=== PATIENT | male | born 1960 | race African-American/Black ===

== ENCOUNTER 2023-12-14 20:53 | Inpatient (IN) | payer MEDICARE, MEDICAID ==
[~2023-12-14] VITALS: Ht 182.9 cm; Wt 70.8 kg
[2023-12-14 21:03] VITALS: O2SAT 92
[2023-12-14 21:57] LABS: CLARITY URINE CLOUDY (CLEAR); COLOR URINE YELLOW (YELLOW); GLUCOSE URINE NEGATIVE (NEGATIVE); KETONES URINE NEGATIVE (NEGATIVE); LEUKOCYTE ESTERASE URINE 3+ (NEGATIVE); NITRITE URINE POSITIVE (NEGATIVE); OCCULT BLOOD URINE 1+ (NEGATIVE); PROTEIN URINE 1+ (NEGATIVE); SPECIFIC GRAVITY URINE 1.017 (1.005-1.030)
[2023-12-14 22:13] LABS: HEMATOCRIT. 39.2 % (42.0-52.0); HEMOGLOBIN. 13.9 g/dL (14.0-18.0); MEAN CORPUSCULAR HEMOGLOBIN 31.5 pg (28.0-32.0); MEAN CORPUSCULAR HGB CONC 35.3 g/dL (31.0-37.0); MEAN CORPUSCULAR VOLUME 89.1 fL (80.0-94.0); MEAN PLATELET VOLUME 9.2 fl (7.4-10.4); PLATELET 175 x1000/uL (130-400); RED CELL DISTRIBUTION WIDTH 13.7 % (11.6-14.6); WHITE BLOOD COUNT 19.1 x1000/uL (4.5-11.0)
[2023-12-14 22:14] LABS: DIFFERENTIAL COMMENT 1
[2023-12-14 22:14] LABS: WBC URINE 50-100 /hpf (0-2)
[2023-12-14 22:15] LABS: RBC URINE 15-25 /hpf (0-2)
[2023-12-14 22:16] LABS: BACTERIA URINE 4+; SQUAMOUS EPITHELIAL CELL URINE 1+ /lpf (RARE/1+)
[2023-12-14 22:28] LABS: ALANINE AMINOTRANSFERASE 27 IU/L (10-49); ALBUMIN 4.1 g/dL (3.2-4.8); ASPARTATE AMINOTRANSFERASE 22 IU/L (<34); BILIRUBIN TOTAL 0.6 mg/dL (0.1-1.0); CALCIUM 8.6 mg/dL (8.7-10.4); CARBON DIOXIDE 27 mEq/L (21-32); CHLORIDE 105 mEq/L (98-107); CREATINE KINASE 119 IU/L (46-171); CREATININE 1.3 mg/dL (0.6-1.3); GLUCOSE 100 mg/dL (70-105); LACTATE DEHYDROGENASE 197 IU/L (120-246); POTASSIUM 4.3 mEq/L (3.5-5.1); PROTEIN TOTAL 7.3 g/dL (6.0-8.3); SODIUM 136 mEq/L (136-145); TROPONIN I HIGH SENSITIVITY 9 ng/L (3.0-53); UREA NITROGEN BLOOD 16 mg/dL (9-23)
[2023-12-14 22:29] LABS: PLATELET ESTIMATE NORMAL
[2023-12-14] MEDS: SODIUM CHLORIDE 0.9% 1000ML BAG (SEPSIS BOLUS) IV ONE (22:38)
[2023-12-14] MEDS: PIPERACILLIN/TAZO 3.375G/50ML 50 ML IV SCH (23:24)
[2023-12-15 00:23] LABS: INR 1.8; PROTHROMBIN TIME 19.4 sec (9.6-11.0)
[2023-12-15 01:39] VITALS: BP 126/77; PULSE 110; RESP 19; TEMP 98.2
[2023-12-15 04:00] VITALS: BP 143/88; PULSE 108; RESP 20; TEMP 98.7
[2023-12-15] MEDS ORDERED: MULT-1146 MT (04:44)
[2023-12-15] MEDS ORDERED: THIA50TA12 PO (04:44)
[2023-12-15] MEDS ORDERED: LURA120T MT (04:44)
[2023-12-15] MEDS ORDERED: FERR325T6 MT (04:44)
[2023-12-15] MEDS ORDERED: ATOR10TA69 MT (04:44)
[2023-12-15] MEDS ORDERED: HYDR50TA40 MT (04:44)
[2023-12-15] MEDS ORDERED: ONDA4TAB50 MT (04:44)
[2023-12-15] MEDS ORDERED: QUET100T PO (04:44)
[2023-12-15] MEDS ORDERED: LEVE500T98 MT (04:44)
[2023-12-15] MEDS ORDERED: MELA3TAB40 MT (04:44)
[2023-12-15] MEDS ORDERED: TRAZ-251 MT (04:45)
[2023-12-15 08:00] VITALS: BP 141/93; PULSE 111; RESP 15; TEMP 98.7
[2023-12-15] MEDS ORDERED: IPRATROPIUM/ALBUTEROL 0.5-3(2.5)MG/3ML NEB HHN PRN (09:00)
[2023-12-15] MEDS ORDERED: DIPHENHYDRAMINE 50MG/ML VIAL IV PRN (09:00)
[2023-12-15] MEDS ORDERED: ONDANSETRON HCL 4MG/2ML INJ IV PRN (09:00)
[2023-12-15] MEDS ORDERED: CLONIDINE 0.1MG TABLET PO PRN (09:00)
[2023-12-15] MEDS: ACETAMINOPHEN 325MG TABLET PO PRN (09:40)
[2023-12-15] MEDS: PIPERACILLIN/TAZO 3.375G/50ML IV SCH (11:08)
[2023-12-15 12:00] VITALS: BP 128/88; PULSE 106; RESP 20; TEMP 98.9
[2023-12-15] MEDS: VANCOMYCIN 1.5GM/250ML IV NR (13:13)
[2023-12-15 16:00] VITALS: BP 136/77; PULSE 110; RESP 18; TEMP 98.7
[2023-12-15 20:03] VITALS: BP 138/87; PULSE 117; RESP 21; TEMP 98.6
[2023-12-16] VITALS: BP 142/82; PULSE 117; RESP 22; TEMP 98
[2023-12-16 04:00] VITALS: BP 123/102; PULSE 105; RESP 20; TEMP 97.7
[2023-12-16] MEDS: VANCOMYCIN 1GM/200ML PMX (BAXTER) IV SCH (05:49)
[2023-12-16 07:50] LABS: HEMATOCRIT. 44.6 % (42.0-52.0); HEMOGLOBIN. 15.6 g/dL (14.0-18.0); MEAN CORPUSCULAR HEMOGLOBIN 31.2 pg (28.0-32.0); MEAN CORPUSCULAR HGB CONC 34.9 g/dL (31.0-37.0); MEAN CORPUSCULAR VOLUME 89.2 fL (80.0-94.0); MEAN PLATELET VOLUME 9.2 fl (7.4-10.4); PLATELET 138 x1000/uL (130-400); RED CELL DISTRIBUTION WIDTH 14.5 % (11.6-14.6); WHITE BLOOD COUNT 18.6 x1000/uL (4.5-11.0)
[2023-12-16 07:55] LABS: ALANINE AMINOTRANSFERASE 31 IU/L (10-49); ALBUMIN 3.9 g/dL (3.2-4.8); ASPARTATE AMINOTRANSFERASE 24 IU/L (<34); BILIRUBIN TOTAL 0.6 mg/dL (0.1-1.0); CALCIUM 8.8 mg/dL (8.7-10.4); CARBON DIOXIDE 23 mEq/L (21-32); CHLORIDE 105 mEq/L (98-107); GLUCOSE 96 mg/dL (70-105); POTASSIUM 4.6 mEq/L (3.5-5.1); PROTEIN TOTAL 6.9 g/dL (6.0-8.3); SODIUM 137 mEq/L (136-145); UREA NITROGEN BLOOD 11 mg/dL (9-23)
[2023-12-16 08:21] LABS: DIFFERENTIAL COMMENT 1
[2023-12-16 12:00] VITALS: BP 149/86; PULSE 118; RESP 22; TEMP 98
[2023-12-16 16:00] VITALS: BP 142/89; PULSE 115; RESP 21; TEMP 98.2
[2023-12-16 16:13] LABS: PLATELET ESTIMATE NORMAL
[2023-12-16 20:00] VITALS: BP 142/89; PULSE 116; RESP 18; TEMP 98
[2023-12-16] MEDS: CEFAZOLIN 2GM/100ML 100 ML IV SCH (20:59)
[2023-12-17] VITALS: BP 141/88; PULSE 116; RESP 18; TEMP 98
[2023-12-17 04:00] VITALS: BP 132/88; PULSE 116; RESP 18; TEMP 98
[2023-12-17 07:26] LABS: DIFFERENTIAL COMMENT 1; HEMATOCRIT. 38.9 % (42.0-52.0); HEMOGLOBIN. 13.6 g/dL (14.0-18.0); MEAN CORPUSCULAR HEMOGLOBIN 30.5 pg (28.0-32.0); MEAN CORPUSCULAR HGB CONC 35.1 g/dL (31.0-37.0); MEAN PLATELET VOLUME 9.2 fl (7.4-10.4); PLATELET 142 x1000/uL (130-400); RED BLOOD CELL COUNT 4.47 mill/uL (4.7-6.1); WHITE BLOOD COUNT 10.1 x1000/uL (4.5-11.0)
[2023-12-17 07:30] LABS: CALCIUM 8.4 mg/dL (8.7-10.4); CARBON DIOXIDE 26 mEq/L (21-32); CHLORIDE 105 mEq/L (98-107); GLUCOSE 114 mg/dL (70-105); POTASSIUM 3.8 mEq/L (3.5-5.1); SODIUM 138 mEq/L (136-145); UREA NITROGEN BLOOD 18 mg/dL (9-23)
[2023-12-17 08:00] VITALS: BP 132/88; PULSE 106; RESP 20; TEMP 98.2
[2023-12-17 12:00] VITALS: BP 132/88; PULSE 97; RESP 21; TEMP 98.3
[2023-12-17] MEDS ORDERED: CEPH500C2 MT (12:26)
[2023-12-17] MEDS ORDERED: BACLOFEN 10MG TABLET PO PRN (14:00)
[2023-12-17] MEDS: QUETIAPINE FUMARATE 50MG TABLET PO SCH (14:15)
[2023-12-17] MEDS: LEVETIRACETAM 500MG TABLET PO SCH (14:15)
[2023-12-17] MEDS: ATORVASTATIN CALCIUM 10MG TABLET PO SCH (14:16)
[2023-12-17 16:38] LABS: PLATELET ESTIMATE NORMAL
[2023-12-17] MEDS ORDERED: TRAZODONE HCL 50MG TABLET PO SCH (21:00)
== END 2023-12-17 17:02 | DRG 871 ==
LOC: ER 20:53 → 3WST 23:34 → EDBEDREQTM 23:38 → EDBEDREQ 23:38
PROVIDERS: ADMIT Internal Medicine; ATTEND Internal Medicine
DX: A41.51 Sepsis due to Escherichia coli [E. coli] (principal); G93.41 Metabolic encephalopathy; N39.0 Urinary tract infection, site not specified; Z20.822 Contact with and (suspected) exposure to COVID-19; F20.9 Schizophrenia, unspecified; E11.9 Type 2 diabetes mellitus without complications; R65.20 Severe sepsis without septic shock; I10 Essential (primary) hypertension
CPT/HCPCS: 36415; 71045; 80048; 80053; 80202; 81003; 82550; 82962; 83605; 83615; 83880; 84145; 84484; 85025; 87077; 87186; 87426; 87804; 93005; 93970; 99285; J0690; J2543; J3370; J7030

== ENCOUNTER 2025-01-28 17:01 | Emergency (ER) | payer OTHER, MEDICAID ==
[~2025-01-28] VITALS: Ht 177.8 cm; Wt 91.0 kg
[~2025-01-28 17:01] MED LIST: ATOR10TA69 MT; CEPH500C2 MT; FERR325T6 MT; HYDR50TA40 MT; LEVE-20 MT; LURA120T MT; MELA3TAB40 MT; MULT-1146 MT; ONDA4TAB50 MT; QUET100T PO; THIA50TA12 PO; TRAZ-251 MT
[2025-01-28 17:02] VITALS: O2SAT 98
[2025-01-28] MEDS: LEVETIRACETAM 1000MG PREMIX 100 ML IV ONE (17:39)
[2025-01-28 18:24] LABS: CLARITY URINE CLEAR (CLEAR); GLUCOSE URINE NEGATIVE (NEGATIVE); KETONES URINE NEGATIVE (NEGATIVE); LEUKOCYTE ESTERASE URINE NEGATIVE (NEGATIVE); NITRITE URINE NEGATIVE (NEGATIVE); OCCULT BLOOD URINE TRACE (NEGATIVE); PROTEIN URINE 1+ (NEGATIVE); SPECIFIC GRAVITY URINE 1.011 (1.005-1.030); UROBILINOGEN URINE 0.2 E.U./dL (0.2-1.0)
[2025-01-28 18:30] LABS: BASOPHILS % 0.4 % (0.0-2.0); EOSINOPHILS % 0.3 % (0.0-5.0); HEMATOCRIT. 42.1 % (42.0-52.0); HEMOGLOBIN. 14.5 g/dL (14.0-18.0); MEAN CORPUSCULAR HEMOGLOBIN 30.3 pg (28.0-32.0); MEAN CORPUSCULAR HGB CONC 34.4 g/dL (31.0-37.0); MEAN PLATELET VOLUME 9.4 fl (7.4-10.4); MONOCYTES % 9.9 % (2.0-8.0); NEUTROPHILS % 77.4 % (40.0-76.0); PLATELET 208 x1000/uL (130-400); RED BLOOD CELL COUNT 4.79 mill/uL (4.7-6.1); WHITE BLOOD COUNT 14.5 x1000/uL (4.5-11.0)
[2025-01-28 18:33] LABS: *AMPHETAMINES SCREEN URINE NEGATIVE (NEGATIVE); *BARBITURATES SCREEN URINE NEGATIVE (NEGATIVE); *BENZODIAZEPINES SCREEN URINE NEGATIVE (NEGATIVE); *COCAINE SCREEN URINE NEGATIVE (NEGATIVE)
[2025-01-28 18:34] LABS: CANNABINOID URINE SCREEN NEGATIVE (NEGATIVE); ECSTASY MDMA SCREEN URINE NEGATIVE (NEGATIVE); METHADONE URINE SCREEN NEGATIVE (NEGATIVE); OPIATES URINE SCREEN NEGATIVE (NEGATIVE); PHENCYCLIDINE URINE SCREEN NEGATIVE (NEGATIVE)
[2025-01-28 18:38] LABS: CHLORIDE 105 mEq/L (98-107); POTASSIUM 3.6 mEq/L (3.5-5.1); SODIUM 141 mEq/L (136-145)
[2025-01-28 18:39] LABS: CALCIUM 9.8 mg/dL (8.7-10.4); CARBON DIOXIDE 26 mEq/L (21-32)
[2025-01-28 18:41] LABS: COLOR URINE STRAW (YELLOW)
[2025-01-28 18:42] LABS: RBC URINE NONE SEEN /hpf (0-2); SQUAMOUS EPITHELIAL CELL URINE FEW /lpf (RARE/1+); WBC URINE 0-2 /hpf (0-2)
[2025-01-28 18:43] LABS: BACTERIA URINE NONE SEEN; COARSE GRANULAR CASTS URINE 0-5 /lpf; MUCUS URINE TRACE /lpf (NONE/TRACE)
[2025-01-28 18:44] LABS: CREATININE 1.1 mg/dL (0.6-1.3); GLUCOSE 116 mg/dL (70-105); UREA NITROGEN BLOOD 17 mg/dL (9-23)
[2025-01-28 18:45] LABS: ETHANOL BLOOD < 10 mg/dL (<10); TROPONIN I HIGH SENSITIVITY 20 ng/L (3.0-53)
[2025-01-28 21:26] VITALS: BP 126/76; PULSE 98; RESP 15; TEMP 36.9; O2SAT 96
[2025-01-28 21:45] LABS: TROPONIN I HIGH SENSITIVITY 53 ng/L (3.0-53)
== END 2025-01-28 21:25 ==
LOC: ER 17:01 → EDBEDREQ 20:13 → EDBEDREQTM 20:13 → ER 21:25
DX: G40.909 Epilepsy, unspecified, not intractable, without status epilepticus (principal); E11.9 Type 2 diabetes mellitus without complications; I10 Essential (primary) hypertension; F20.9 Schizophrenia, unspecified; E78.5 Hyperlipidemia, unspecified; Z79.899 Other long term (current) drug therapy
CPT/HCPCS: 80305; 80048; 81003; 80320; 85025; 84484; 36415; 71045; 70450; 93005; 96365; 99285; J1953; G0480

== ENCOUNTER 2025-08-12 21:28 | Inpatient (IN) | payer MEDICARE, MEDICAID ==
[~2025-08-12] VITALS: Ht 172.7 cm; Wt 81.6 kg
[2025-08-12 21:36] VITALS: O2SAT 98
[2025-08-12] MEDS ORDERED: LEVETIRACETAM 1,000MG in NACL 100ML PREMIX IV SCH (22:00)
[2025-08-12] MEDS: LEVETIRACETAM 1000MG PREMIX 100 ML IV SCH (22:40)
[2025-08-12 23:10] LABS: BASOPHILS % 0.2 % (0.0-2.0); EOSINOPHILS % 0.3 % (0.0-5.0); HEMATOCRIT. 42.2 % (42.0-52.0); HEMOGLOBIN. 14.8 g/dL (14.0-18.0); LYMPHOCYTES % 11.7 % (20.0-50.0); MEAN PLATELET VOLUME 9.2 fl (7.4-10.4); MONOCYTES % 8.9 % (2.0-8.0); NEUTROPHILS % 78.9 % (40.0-76.0); PLATELET 183 x1000/uL (130-400); RED BLOOD CELL COUNT 5.01 mill/uL (4.7-6.1); RED CELL DISTRIBUTION WIDTH 14.3 % (11.6-14.6)
[2025-08-12 23:19] LABS: CREATININE 1.1 mg/dL (0.6-1.3); UREA NITROGEN BLOOD 12 mg/dL (9-23)
[2025-08-12 23:20] LABS: ETHANOL BLOOD < 10 mg/dL (<10)
[2025-08-12 23:50] LABS: CLARITY URINE CLEAR (CLEAR); COLOR URINE YELLOW (YELLOW); GLUCOSE URINE NEGATIVE (NEGATIVE); KETONES URINE NEGATIVE (NEGATIVE); LEUKOCYTE ESTERASE URINE NEGATIVE (NEGATIVE); NITRITE URINE NEGATIVE (NEGATIVE); OCCULT BLOOD URINE 1+ (NEGATIVE); PH URINE 5.5 (4.5-8.0); PROTEIN URINE 1+ (NEGATIVE); SPECIFIC GRAVITY URINE 1.012 (1.005-1.030); UROBILINOGEN URINE 0.2 E.U./dL (0.2-1.0)
[2025-08-13 00:12] LABS: *AMPHETAMINES SCREEN URINE NEGATIVE (NEGATIVE); *BENZODIAZEPINES SCREEN URINE NEGATIVE (NEGATIVE)
[2025-08-13 00:13] LABS: *BARBITURATES SCREEN URINE NEGATIVE (NEGATIVE)
[2025-08-13 00:14] LABS: *COCAINE SCREEN URINE NEGATIVE (NEGATIVE); CANNABINOID URINE SCREEN NEGATIVE (NEGATIVE); ECSTASY MDMA SCREEN URINE NEGATIVE (NEGATIVE); METHADONE URINE SCREEN NEGATIVE (NEGATIVE); OPIATES URINE SCREEN NEGATIVE (NEGATIVE); PHENCYCLIDINE URINE SCREEN NEGATIVE (NEGATIVE)
[2025-08-13 00:36] LABS: SQUAMOUS EPITHELIAL CELL URINE RARE /lpf (RARE/1+); WBC URINE NONE SEEN /hpf (0-2)
[2025-08-13 00:37] LABS: BACTERIA URINE NONE SEEN
[2025-08-13 04:30] VITALS: BP 125/83; PULSE 86; RESP 18; TEMP 36.696
[2025-08-13] MEDS ORDERED: ONDANSETRON HCL 4MG/2ML INJ IV PRN (07:45)
[2025-08-13] MEDS ORDERED: DOCUSATE SODIUM 100MG CAPSULE PO PRN (07:45)
[2025-08-13] MEDS ORDERED: CLONIDINE 0.1MG TABLET PO PRN (07:45)
[2025-08-13] MEDS ORDERED: IPRATROPIUM/ALBUTEROL 0.5-3(2.5)MG/3ML NEB HHN PRN (07:45)
[2025-08-13 08:00] VITALS: BP 136/89; PULSE 91; RESP 18; TEMP 36.5; O2SAT 100
[2025-08-13] MEDS ORDERED: MEDICATION NOT ON FORMULARY EA (Levetiracetam 1 TAB) MT SCH (09:45)
[2025-08-13] MEDS: LEVETIRACETAM 500MG TABLET PO SCH (10:48)
[2025-08-13] MEDS: HYDRALAZINE HCL 50MG TABLET PO SCH (10:48)
[2025-08-13] MEDS: ENOXAPARIN 40MG/0.4ML SYR SUBCUT SCH (10:49)
[2025-08-13 12:15] VITALS: BP 122/80; PULSE 91; RESP 18; TEMP 36.6; O2SAT 97
[2025-08-13 16:00] VITALS: BP_SYST 127; BP_SYST 153; BP_DIAS 71; BP_DIAS 79; PULSE 78; PULSE 83; RESP 18; TEMP 36.6; TEMP 36.7; O2SAT 98; O2SAT 99
[2025-08-13] MEDS ORDERED: LORAZEPAM 2MG/ML UD SYRINGE IV PRN (16:00)
[2025-08-13] MEDS: PANTOPRAZOLE SODIUM 40 MG/VIAL IV SCH (18:23)
[2025-08-13 20:00] VITALS: BP 115/83; PULSE 94; RESP 17; TEMP 36.9; O2SAT 95
[2025-08-13] MEDS ORDERED: MEDICATION NOT ON FORMULARY EA (Lurasidone Hcl (Latuda) 1 TAB) MT SCH (21:00)
[2025-08-13] MEDS: TRAZODONE HCL 50MG TABLET PO SCH (22:18)
[2025-08-13] MEDS: ATORVASTATIN CALCIUM 10MG TABLET PO SCH (22:19)
[2025-08-14] VITALS: BP 137/80; PULSE 87; RESP 17; TEMP 37.2; O2SAT 98
[2025-08-14 02:20] LABS: PHOSPHORUS 3.6 mg/dL (2.5-4.9)
[2025-08-14 04:00] VITALS: BP 147/90; PULSE 79; RESP 16; TEMP 36.2; O2SAT 96
[2025-08-14 08:00] VITALS: BP 121/77; PULSE 79; RESP 16; TEMP 36.4; O2SAT 98
[2025-08-14 10:42] LABS: TRIGLYCERIDE 211.0 mg/dL (0-150)
[2025-08-14 10:43] LABS: LDL CHOLESTEROL 124.0 mg/dL (5-100); TROPONIN I HIGH SENSITIVITY 12 ng/L (3.0-53)
[2025-08-14 10:46] LABS: T4 FREE 1.14 ng/dL (0.89-1.76)
[2025-08-14 12:00] VITALS: BP 136/87; PULSE 96; RESP 20; TEMP 36.5; O2SAT 97
[2025-08-14 16:00] VITALS: BP 122/79; PULSE 90; RESP 18; TEMP 36.6; O2SAT 100
[2025-08-14] MEDS: MELATONIN 3MG TABLET PO SCH (21:55)
[2025-08-15] VITALS: BP 126/83; TEMP 36.7; O2SAT 88
[2025-08-15 04:00] VITALS: BP 116/68; PULSE 72; RESP 18; TEMP 36.5; O2SAT 99
[2025-08-15 08:00] VITALS: BP 131/81; PULSE 83; RESP 19; TEMP 36.4; O2SAT 100
[2025-08-15] MEDS: SODIUM CHLORIDE 0.9% 500 ML IV SCH (08:00)
[2025-08-15] MEDS: LEVETIRACETAM 250MG TABLET PO SCH (09:51)
[2025-08-15 12:00] VITALS: BP 165/85; PULSE 91; RESP 19; TEMP 36.6; O2SAT 97
[2025-08-15] MEDS: PANTOPRAZOLE 40MG DR TABLET PO NR (12:29)
[2025-08-15 16:00] VITALS: BP 128/73; PULSE 80; RESP 18; TEMP 36.7; O2SAT 99
[2025-08-15 20:00] VITALS: BP 125/73; PULSE 74; RESP 17; TEMP 36.3; O2SAT 96
[2025-08-16] VITALS: BP 121/81; PULSE 87; RESP 17; TEMP 36.4; O2SAT 94
[2025-08-16 04:00] VITALS: BP 107/68; PULSE 78; RESP 17; TEMP 36.3; O2SAT 97
[2025-08-16 08:00] VITALS: BP 133/72; PULSE 74; RESP 20; TEMP 36.5; O2SAT 95
[2025-08-16] MEDS ORDERED: QUET100T PO (09:09)
[2025-08-16] MEDS ORDERED: LEVE750T4 MT (09:09)
[2025-08-16] MEDS ORDERED: LURA120T PO (09:09)
[2025-08-16 12:00] VITALS: BP 112/73; PULSE 83; RESP 20; TEMP 36.4; O2SAT 99
[2025-08-16 16:00] VITALS: BP 121/91; PULSE 74; RESP 20; TEMP 36.4; O2SAT 95
[2025-08-16 16:20] VITALS: BP 121/91; PULSE 74; RESP 20; TEMP 97.5
== END 2025-08-16 17:43 | DRG 101 ==
LOC: ER 21:28 → 5WST 08-13 00:39 → EDBEDREQDT 08-13 00:40 → EDBEDREQ 08-13 00:40 → EDBEDREQTM 08-13 00:40 → ENRESERV 08-13 03:11 → ER 08-13 03:40
PROVIDERS: ADMIT Internal Medicine; ATTEND Internal Medicine
PROC: 4A00X4Z Measurement of Central Nervous Electrical Activity, External Approach (ICD-10-PCS; principal; 2025-08-15)
DX: G40.909 Epilepsy, unspecified, not intractable, without status epilepticus (principal); E11.9 Type 2 diabetes mellitus without complications; I10 Essential (primary) hypertension; F20.9 Schizophrenia, unspecified; F32.A Depression, unspecified; J44.9 Chronic obstructive pulmonary disease, unspecified; E78.00 Pure hypercholesterolemia, unspecified; I25.10 Atherosclerotic heart disease of native coronary artery without angina pectoris; G47.00 Insomnia, unspecified; F41.9 Anxiety disorder, unspecified; H54.8 Legal blindness, as defined in USA; Z55.6 Problems related to health literacy; Z79.899 Other long term (current) drug therapy
CPT/HCPCS: 36415; 71045; 72170; 80048; 80061; 80305; 80320; 81003; 82550; 82962; 83735; 84100; 84439; 84481; 84484; 85025; 93005; 93970; 95816; 96365; 99285; J1650; J1953; J2470; G0480